=== PATIENT | male | born 1955 | race Caucasian/White ===

== ENCOUNTER 2016-12-22 06:16 | Day surgery (SDC) | payer OTHER ==
--- NOTE | 2016-11-27 09:38 | HP ---
DATE OF ADMISSION: Patient is to be admitted to the [facility] in the near future, date to be determined. 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 He was told that he had a hernia and was referred for my evaluation. On examination, he actually has bilateral inguinal hernias with the right larger than the left. Patient does have chronic constipation and has had such for most of his life. On Metamucil regularly. His last colonoscopy was 2014. No or respiratory complaints to suggest predisposition to hernia formation otherwise. PATIENTS PAST MEDICAL HISTORY: Significant for what he describes as a leaky cardiac valve. Those details are not known today. No known history of hypertension, diabetes, respiratory, renal, or hepatic insufficiency. PAST SURGICAL HISTORY: Significant for ORIF of the ankle in 2004, cholecystectomy [address] Murtaza Pugh. CURRENT MEDICATIONS: Crestor, Toprol, baby aspirin. SOCIAL HISTORY: Negative for tobacco, negative for alcohol. FAMILY HISTORY: Father age 81 with no health issues. Mother age 72 with history of cancer/details not provided. Siblings x2 both with COPD, one with renal failure. REVIEW OF SYSTEMS: Otherwise, nil. PHYSICAL EXAMINATION: Patient examined in the erect position. Abdomen: There are 2 obvious hernias with the right significantly larger than the left. They are both reducible. The scrotum is full bilaterally with unremarkable palpable testes. No other scrotal masses. IMPRESSION: Bilateral inguinal hernias, right large and symptomatic. PLAN: Bilateral laparoscopic inguinal hernia repair with mesh. If the procedure cannot be completed laparoscopically, will proceed with open inguinal hernia repair with mesh. Indications, alternatives, possible complications were reviewed. Consent obtained. Patient will be seen preoperatively by Dr. Rafael Solis. Please refer to his notes for those medical details. AIMEE ESPARZA M.D. [place]OR[place]/[id number] cc: Rafael Solis MD
[2016-12-18 12:07] VITALS: BMI 27.8
[2016-12-22] MEDS ORDERED: TAMSULOSIN HCL 0.4 MG CAP.ER.24H (FP) ONE (06:38)
[2016-12-22] MEDS ORDERED: PROPOFOL 20 ML ONE ×3 (07:27)
[2016-12-22] MEDS ORDERED: ePHEDrine SULFATE 50 MG/1 ML AMPULE ONE (07:27)
[2016-12-22] MEDS ORDERED: SUCCINYLCHOLINE CHLORIDE 200 MG/10 ML VIAL ONE (07:27)
[2016-12-22] MEDS ORDERED: ROCURONIUM BROMIDE 50 MG/5 ML VIAL ONE ×2 (07:27→07:29)
[2016-12-22] MEDS ORDERED: MIDAZOLAM HCL 2 MG/2 ML SINGLE DOSE VIAL ONE (07:28)
[2016-12-22] MEDS ORDERED: NEOSTIGMINE METHYLSULFATE 0.5 MG/ML - 10 ML MDV ONE (07:28)
[2016-12-22] MEDS ORDERED: ONDANSETRON 4 MG/2 ML VIAL ONE (08:08)
[2016-12-22] MEDS ORDERED: DEXAMETHASONE SOD PHOSPHATE 4 MG/1 ML VIAL ONE (08:08)
[2016-12-22] MEDS ORDERED: ceFAZolin SODIUM 1 GM VIAL ONE (08:08)
[2016-12-22] MEDS ORDERED: oxyCODONE HCL 5 MG TABLET ONE (10:16)
[2016-12-22] MEDS ORDERED: oxyCODONE HCL 5 MG TABLET PO PRN ×2 (10:23)
[2016-12-22] MEDS ORDERED: ONDANSETRON 4 MG/2 ML VIAL IVPUSH PRN (10:23)
[2016-12-22] MEDS ORDERED: LACTATED RINGERS SOLUTION 1,000 ML IV SCH (10:30)
[2016-12-22 12:49] VITALS: TEMP 97.6
[2016-12-22 14:07] VITALS: BP 126/78; PULSE 66
--- NOTE | 2016-12-22 14:08 | OP ---
DATE OF OPERATION: 12/22/2016 PROCEDURE: Bilateral laparoscopic inguinal hernias. PREOPERATIVE DIAGNOSIS: Bilateral inguinal hernias. POSTOPERATIVE DIAGNOSIS: Bilateral indirect inguinal hernias. OPERATING SURGEON: Quinten Escudero MD PLOW HOLDER: Corbin Connelly MD ANESTHESIA: Maximino Ng MD (general). INSTRUMENT COUNTS: Correct. ESTIMATED BLOOD LOSS: Minimal. SPECIMENS: None. IMPLANT: ProTack mesh x 2. DRAINS: None. HISTORY: A 61-year-old man who presents for repair of bilateral inguinal hernias. Indications, alternatives, possible complications reviewed. Consent obtained. PROCEDURE: With the patient in supine position, after general anesthesia, the abdomen was prepped and draped in usual sterile fashion with chlorhexidine. A small infraumbilical incision was made just off to the right of the midline. The subcutaneous tissues were . The anterior rectus sheath was identified and incised. The rectus muscle fibers were retracted laterally in both directions after bulging the preperitoneal space. A dissecting balloon was advanced in the preperitoneal space toward the pubis. The balloon was inflated, creating the dissection The balloon was removed leaving the structural collar in place. The preperitoneal space was inflated to an adequate pressure and volume using CO2 gas. The camera lens was passed through this port and the preperitoneal space visualized. Under direct vision, a limited port was placed in the midline, midway between the umbilicus and the pubis. Expiration of the preperitoneal space left recognition of the anatomy. There were bilateral indirect components noted. There were no direct or femoral components noted. Both the indirect components were incarcerated. We then directed our attention to the left side. The cord was skeletonized with cremasteric fibers, and the hernia contents were reduced. The left side was repaired with a piece of 4 x 6 inch ProTack mesh. The mesh was keyholed and placed in the preperitoneal space. The mesh was fashioned on the left side using counter palpation and AbsorbaTack. It was fixed superiorly with pubic retractor. It was fixed anterior to the anterior abdominal wall. It was fixed inferiorly to Artur's ligament and the pubic tubercle. The keyhole leaf was wrapped around the cord and tacked in place, reconstructing the internal ring. Now directing our attention to the contralateral side, the incarcerated right contents were reduced with skeletonization of the cord. The right side was repaired with the same mesh and technique as described above for the left. Upon completion of repair, the mesh was noted to overlap in the midline. The midline port was removed. There was no bleeding identified at that port site. Ultimately, the umbilical port was removed and the gas allowed to escape from the preperitoneal space. The fascia at each of the port sites was closed with interrupted No. 1 Vicryl suture. Both skin wounds were closed with subcuticular 4-0 Biosyn suture. The patient tolerated the procedure. The procedure was terminated. Yulissa [id number] [place]
== END 2016-12-22 13:30 | disposition home or self-care (01) ==
LOC: FASU 06:16
PROVIDERS: ATTEND Surgery
PROC: 0YUA4JZ Supplement Bilateral Inguinal Region with Synthetic Substitute, Percutaneous Endoscopic Approach (ICD-10-PCS; principal; 2016-12-22 08:24)
DX: K40.20 Bilateral inguinal hernia, without obstruction or gangrene, not specified as recurrent (principal)
CPT/HCPCS: 94760

== ENCOUNTER 2021-05-02 07:52 | Day surgery (SDC) | payer OTHER ==
[2021-04-28 09:53] VITALS: BMI 31.7
[2021-05-02 10:36] VITALS: TEMP 98.4
[2021-05-02 10:47] VITALS: BP 129/74; PULSE 78
== END 2021-05-02 10:56 | disposition home or self-care (01) ==
LOC: FASU-ENDO 07:52
PROVIDERS: ATTEND Internal Medicine Gastroenterology
PROC: 0DJD8ZZ Inspection of Lower Intestinal Tract, Via Natural or Artificial Opening Endoscopic (ICD-10-PCS; principal; 2021-05-02 10:02)
DX: Z86.010 Personal history of colon polyps (principal); Z83.71 Family history of colonic polyps; Z80.0 Family history of malignant neoplasm of digestive organs

== ENCOUNTER 2024-02-20 07:16 | Day surgery (SDC) | payer OTHER ==
[2024-02-14 15:54] VITALS: BMI 29.9
[2024-02-20] MEDS ORDERED: LIDOCAINE HCL/PF 2% SDV 5ML VIAL ONE (07:22)
[2024-02-20] MEDS ORDERED: PROPOFOL 160 ML ONE (07:22)
[2024-02-20 08:53] VITALS: TEMP 97.1
[2024-02-20 08:57] VITALS: BP 102/68; PULSE 66; RESP 20
== END 2024-02-20 09:05 | disposition home or self-care (01) ==
LOC: FASU-ENDO 07:16
PROVIDERS: ATTEND Internal Medicine Gastroenterology
PROC: 0DDN8ZX Extraction of Sigmoid Colon, Via Natural or Artificial Opening Endoscopic, Diagnostic (ICD-10-PCS; principal; 2024-02-20 08:13)
DX: Z12.11 Encounter for screening for malignant neoplasm of colon (principal); K63.5 Polyp of colon; Z86.010 Personal history of colon polyps; Z80.0 Family history of malignant neoplasm of digestive organs; Z83.719 Family history of colon polyps, unspecified
CPT/HCPCS: 88305-TC